=== PATIENT | male | born 1990 | race Caucasian/White ===

== ENCOUNTER → 2021-04-01 | Outpatient (CLI) | payer MEDICARE, MEDICAID, SELFPAY ==
[2018-05-10 15:43] VITALS: BMI 35.6
[2021-04-01 08:05] LABS: Mean Corp Hgb Conc 32.6 g/dL (32-36); Mean Corpuscular Hgb 29.2 pg (27.0-32.0); Mean Corpuscular Volume 89.8 fL (80-94); Mean Platelet Vol. 10.5 fl (6.2-12.0); Platelet Count 155 K/mm3 (150-450); RBC Distribution Width CV 12.5 % (11.6-14.6); RBC Distribution Width SD 41.2 fl (35.1-43.9); Red Blood Count 4.79 M/mm3 (4.6-6.2); White Blood Count 5.4 K/mm3 (4.4-11.0)
[2021-04-01 08:39] LABS: ALB/GLOB Ratio 1.2 RATIO (0.9-2.4); AST(SGOT) 12 U/L (15-37); Alanine Aminotransfer ALT/SGPT 22 U/L (16-61); Alkaline Phosphatase 82 U/L (45-117); Anion Gap 4 (5-15); BUN 10 mg/dL (7-18); BUN/Creat Ratio 10.8 RATIO (10-20); Calcium,Total 8.6 mg/dL (8.5-10.1); Chloride 106 mmol/L (98-107); Creatinine, Serum 0.92 mg/dL (0.70-1.30); EST Glomerular Filtration Rate 102 mL/min (>60); Est Glom Filt Rate - Afr Amer 124 mL/min (>60); Globulin 3.2 g/dL (2.2-4.2); Glucose 91 mg/dL (74-106); Potassium 4.1 mmol/L (3.5-5.1); Protein, Total 7.2 g/dL (6.4-8.2); Sodium Level 142 mmol/L (136-145)
[2021-04-01 08:40] LABS: Carbamazepine (Tegretol) 8.2 ug/mL (4.0-12.0)
[2021-04-01 08:50] LABS: Hemoglobin A1c 5.2 % (3.8-5.6)
== END | disposition home or self-care (01) ==
PROVIDERS: PCP Psychiatry & Neurology Child & Adolescent Psychiatry; Referring Provider Psychiatry & Neurology Child & Adolescent Psychiatry; Visit Provider Psychiatry & Neurology Child & Adolescent Psychiatry
DX: Z79.899 Other long term (current) drug therapy (principal)
CPT/HCPCS: 36415; 80053; 80156; 83036; 85027

== ENCOUNTER → 2022-03-31 | Outpatient (CLI) | payer MEDICARE, MEDICAID, SELFPAY ==
[2022-03-31 08:01] LABS: Hematocrit 44.2 % (40-54); Hemoglobin 14.7 g/dL (13.0-16.5); Mean Corp Hgb Conc 33.3 g/dL (32-36); Mean Corpuscular Hgb 29.4 pg (27.0-32.0); Mean Corpuscular Volume 88.4 fL (80-94); Mean Platelet Vol. 10.2 fl (6.2-12.0); Platelet Count 162 K/mm3 (150-450); RBC Distribution Width CV 12.4 % (11.6-14.6); RBC Distribution Width SD 40.1 fl (35.1-43.9); White Blood Count 7.1 K/mm3 (4.4-11.0)
[2022-03-31 08:18] LABS: Hemoglobin A1c 5.3 % (3.8-5.6)
[2022-03-31 08:25] LABS: ALB/GLOB Ratio 1.1 RATIO (0.9-2.4); AST(SGOT) 11 U/L (15-37); Alanine Aminotransfer ALT/SGPT 20 U/L (16-61); Albumin, Serum 3.9 g/dL (3.2-5.0); Alkaline Phosphatase 81 U/L (45-117); Anion Gap 5 (5-15); BUN 13 mg/dL (7-18); BUN/Creat Ratio 14.4 RATIO (10-20); Calcium,Total 8.8 mg/dL (8.5-10.1); Chloride 107 mmol/L (98-107); Cholesterol 151 mg/dL (200); EST Glomerular Filtration Rate 104 mL/min (>60); Est Glom Filt Rate - Afr Amer 126 mL/min (>60); Globulin 3.4 g/dL (2.2-4.2); Glucose 94 mg/dL (74-106); High Density Lipoprotein 43 mg/dL; Potassium 4.3 mmol/L (3.5-5.1); Protein, Total 7.3 g/dL (6.4-8.2); Sodium Level 142 mmol/L (136-145); Triglycerides 126 mg/dL; Very Low Density Lipoprotein 25 mg/dL (5-40)
[2022-03-31 08:36] LABS: Carbamazepine (Tegretol) 7.2 ug/mL (4.0-12.0)
== END | disposition home or self-care (01) ==
LOC: LAB 07:28
PROVIDERS: PCP Psychiatry & Neurology Child & Adolescent Psychiatry; Visit Provider Psychiatry & Neurology Child & Adolescent Psychiatry
DX: Z79.899 Other long term (current) drug therapy (principal)
CPT/HCPCS: 36415; 80053; 80061; 80156; 83036; 85027

== ENCOUNTER → 2023-03-16 | Outpatient (CLI) | payer MEDICARE, MEDICAID, SELFPAY ==
[2023-03-16 08:43] LABS: Cholesterol 186 mg/dL (200); Glucose 96 mg/dL (74-106); High Density Lipoprotein 64 mg/dL; Triglycerides 72 mg/dL; Very Low Density Lipoprotein 14 mg/dL (5-40)
== END | disposition home or self-care (01) ==
LOC: LAB 07:55
PROVIDERS: PCP Nurse Practitioner Adult Health; Referring Provider Nurse Practitioner Adult Health; Visit Provider Nurse Practitioner Adult Health
DX: Z13.6 Encounter for screening for cardiovascular disorders (principal); Z13.1 Encounter for screening for diabetes mellitus
CPT/HCPCS: 36415; 80061; 82947

== ENCOUNTER → 2024-01-12 | Outpatient (CLI) | payer MEDICARE, MEDICAID, SELFPAY ==
[2024-01-12 09:20] LABS: Hematocrit 42.4 % (40-54); Hemoglobin 13.7 g/dL (13.0-16.5); Mean Corp Hgb Conc 32.3 g/dL (32-36); Mean Corpuscular Volume 89.6 fL (80-94); Mean Platelet Vol. 10.4 fl (6.2-12.0); Platelet Count 161 K/mm3 (150-450); RBC Distribution Width SD 42.5 fl (35.1-43.9); Red Blood Count 4.73 M/mm3 (4.6-6.2); White Blood Count 6.5 K/mm3 (4.4-11.0)
[2024-01-12 09:38] LABS: Hemoglobin A1c 5.2 % (3.8-5.6)
[2024-01-12 09:50] LABS: Carbamazepine (Tegretol) 10.3 ug/mL (4.0-12.0)
[2024-01-12 10:08] LABS: ALB/GLOB Ratio 1.1 RATIO (0.9-2.4); AST(SGOT) 21 U/L (15-37); Alanine Aminotransfer ALT/SGPT 29 U/L (16-61); Albumin, Serum 3.8 g/dL (3.2-5.0); Alkaline Phosphatase 98 U/L (45-117); Anion Gap 1 (5-15); BUN 14 mg/dL (7-18); Calcium,Total 8.8 mg/dL (8.5-10.1); Chloride 110 mmol/L (98-107); Cholesterol 179 mg/dL (200); Creatinine, Serum 0.82 mg/dL (0.70-1.30); EST Glomerular Filtration Rate 114 mL/min (>60); Est Glom Filt Rate - Afr Amer 138 mL/min (>60); Globulin 3.6 g/dL (2.2-4.2); Glucose 93 mg/dL (74-106); High Density Lipoprotein 56 mg/dL; Potassium 4.1 mmol/L (3.5-5.1); Protein, Total 7.4 g/dL (6.4-8.2); Sodium Level 141 mmol/L (136-145); Thyroid Stim Hormone (TSH) 2.36 uIU/mL (0.358-3.74); Triglycerides 86 mg/dL; Very Low Density Lipoprotein 17 mg/dL (5-40)
== END | disposition home or self-care (01) ==
LOC: LAB 07:50
PROVIDERS: PCP Nurse Practitioner Adult Health; Referring Provider Psychiatry & Neurology Child & Adolescent Psychiatry; Visit Provider Psychiatry & Neurology Child & Adolescent Psychiatry
DX: Z79.899 Other long term (current) drug therapy (principal)
CPT/HCPCS: 36415; 80053; 80061; 80156; 83036; 84443; 85027

== ENCOUNTER 2024-06-22 17:28 | Emergency (ER) | payer MEDICARE, MEDICAID, SELFPAY ==
[2024-06-22 17:29] VITALS: BP 163/78; PULSE 75; RESP 18; TEMP 36.1; O2SAT 95; BMI 40.8
--- NOTE | 2024-06-22 18:50 | EDS_ITS ---
<Statement entered by Senthil Bear DO - 06/22/24 21:12> Patient was seen and examined with nurse abundio De La Vega All components of the history and physical confirmed and agreed. History of present illness and physical exam: Patient is a 34-year-old male with known history of bipolar disorder who presents to the emergency department with a chief complaint of being bit in the buttock region by a spider. He states that he was sitting down when he felt a sharp pinch to the right buttock and noted that when he stood up he saw the spider he states that he then killed it. He states that he did some research and was concerned that this was a brown recluse spider prompting him to come here for the evaluation management. Patient states he does have some moderate pain but he knows that the spider can cause infection which was ultimately what brought him here tonight. Review of systems: Agree with above Physical exam: Agree with above MDM Patient is a 34-year-old male who presented to the [facility] part with a chief complaint of concern being bit by a brown recluse spider. When looking at the spider here in the emergency department this does not appear to be a brown recluse spider. Patient's wound where he was bit has some mild erythema surrounding it however no purulent discharge noted no fluctuance noted. Patient is nontoxic in appearance. Patient will be given a prescription for doxycycline. He is encouraged to keep a close eye in the area and return with worsening symptoms or any concerns. He is to follow-up with his primary care physician outpatient setting. Him and his father would like to go home at this point time all question concerns answered he is discharged home in stable condition. Final impression: Spider bite to buttock Disposition: Patient will be discharged home in stable condition Supervising attending attestation: Senthil Bear D.O. [facility] History of Present Illness Chief Complaint: Bite Narrative Narrative: Patient is a 34-year-old male with history of bipolar who presents to the emergency department after being bit by a spider to the right upper buttock. Patient was sitting down, when he felt a sharp pinch in his right buttock, he got up, and saw that there was a spider, he then killed it. He is concerned that is a brown recluse spider. Patient denies any other injury. Patient dates the pain is moderate, he was concerned because he knows that the spider can cause infection and is here for evaluation. [facility] Medical History (Updated 06/22/24 @ 18:55 by CHAVA Slater) Depression ADHD Bipolar 1 disorder Home Medications ?Medication ?Instructions ?Recorded ?Last Taken ?Type carbamazepine 200 mg PO 25 days ##125 04/01/18 Unknown History capsule,extended release [id number] dextroamphetamine-amphetamine 10 PO 30 days ##30 04/01/18 Unknown History mg tablet lisdexamfetamine 50 mg capsule PO 30 days ##30 04/01/18 Unknown History risperidone 2 mg tablet PO 25 days ##50 04/01/18 Unknown History sertraline 100 mg tablet PO 25 days ##38 04/01/18 Unknown History doxycycline hyclate 100 mg capsule 100 mg PO BID #14 caps 06/22/24 Unknown Rx Allergy/AdvReac Type Severity Reaction Status Date / Time bee venom protein (honey bee) Allergy Unknown Verified 06/22/24 17:32 Surgical History Injury of face Social History (Updated 05/10/18 @ 16:10 by Suhail BRYANT, PA) Smoking Status: Never smoker alcohol intake: never ROS ROS ED ROS Narrative Constitutional: Negative for fever, chills, weight loss, weakness Eyes: Negative for vision loss, vision change, double vision ENT: Negative for any sore throat, ear pain, congestion Cardiovascular: Negative for any chest pain, tightness, palpitations Respiratory: Negative for any cough, sputum production, hemoptysis, dyspnea, dyspnea on exertion, orthopnea Gastrointestinal: Negative for any abdominal pain, nausea, vomiting, diarrhea, constipation, blood in stool, blood in vomit : Negative for any urinary frequency, dysuria, retention, blood in urine Muscle skeletal: Negative for any neck pain, back pain Neurological: Negative for any headache, syncope, dizziness Skin: Negative for any rashes, itching, abrasions, lacerations. Positive for spider bite to the right upper buttock Psychiatric: Negative for any depression, anxiety, stress, suicidal ideation, homicidal ideation Hematologic: Negative for any excessive bruising, easy bleeding EXAM Physical Exam Narrative Exam Narrative: Vital signs reviewed. Extremities: No peripheral edema, no signs of gross trauma or deformity. Active full range of motion of all extremities. Neuro: Cranial nerves II through XII intact, no focal neurological deficits. Skin: Clean dry and intact with no rash, purpura, petechiae, vesicles or pustules. Patient has a small oval like inflammatory area to the right upper buttock. This is likely where the insect bit the patient. There is no evidence of any significant cellulitis, there is no deep tissue infection. Patient has minimal pain. Backs/flank: No CVA tenderness, no midline spinal tenderness, no deformity. Psych: Normal mood and affect. No SI, HI or acute psychosis. Const Vital Signs: 06/22/24 17:29 Temperature 97 F L Temperature Source Oral Pulse Rate 75 Respiratory Rate 18 Blood Pressure 163/78 H Blood Pressure Mean 106 Pulse Ox 95 Oxygen Delivery Method Room Air Positive obese Nutritional Appearance: obese MDM MDM Treatment and Re-Evaluation :: Differential diagnosis includes however is not limited to: Insect bite, cellulitis, necrotizing fasciitis, nerve injury Patient appears generally well, vital signs are stable, patient is nontoxic-appearing. Presenting to the emergency department after being bit by a spider to his right upper buttock. Secondary to the inflammatory area on the skin, patient will be treated with doxycycline twice a day for 1 week. He is instructed to use cold compress, and to keep a close eye on this area. If the redness gets worse, if the pain becomes unmanageable, the patient will return back to the emergency department. All questions answered, patient stable for discharge. Discharge Plan Triage Chief Complaint: Bite ED Midlevel Provider: Ceferino Diallo ED Provider: Senthil Bear Dx/Rx/DC Orders Clinical Impression: Insect bite Instructions: Animal Bites and Scratches, ED Insect Bite Prescriptions: New doxycycline hyclate 100 mg capsule 100 mg PO BID Qty: 14 0RF No Action dextroamphetamine-amphetamine 10 mg tablet PO 30 Days Qty: 30 Patient Comments: TAKE ONE TABLET BY MOUTH EVERY DAY AT 3 PM sertraline 100 mg tablet PO 25 Days Qty: 38 Patient Comments: TAKE 1 AND 1/2 TABLETS BY MOUTH IN THE MORNING risperidone 2 mg tablet PO 25 Days Qty: 50 Patient Comments: TAKE ONE TABLET BY MOUTH TWICE DAILY carbamazepine 200 mg capsule, ER multiphase 12 hr PO 25 Days Qty: 125 Patient Comments: TAKE TWO CAPSULES BY MOUTH IN THE MORNING, AND THREE capsules AT BEDTIME lisdexamfetamine 50 mg capsule PO 30 Days Qty: 30 Patient Comments: TAKE ONE CAPSULE BY MOUTH EVERY MORNING Primary Care Provider: KRYSTIAN TAI Referrals: KRYSTIAN TAI CRNP [Primary Care Provider] - Activity Restrictions/Additional Instructions: Please take the antibiotics until finished. Return for any worsening symptoms. Print Language: Slovenian Disposition Disposition: Home, Self Care
[2024-06-22] MEDS: Doxycycline 100 MG CAPSULE PO (19:13)
[2024-06-22 19:24] VITALS: BP 145/82; PULSE 75; RESP 18; TEMP 36.1; O2SAT 95
== END 2024-06-22 19:25 | disposition home or self-care (01) ==
LOC: ED 19:11
PROVIDERS: Emergency Provider Emergency Medicine; PCP Nurse Practitioner Adult Health; Referring Provider Emergency Medicine; Visit Provider Emergency Medicine
DX: S30.860A Insect bite (nonvenomous) of lower back and pelvis, initial encounter (principal); W57.XXXA Bitten or stung by nonvenomous insect and other nonvenomous arthropods, initial encounter; E66.9 Obesity, unspecified
CPT/HCPCS: 99283

== ENCOUNTER → 2025-01-29 | Outpatient (CLI) | payer MEDICARE, MEDICAID, SELFPAY ==
[2025-01-29 09:42] LABS: Cholesterol 179 mg/dL (<=200); Glucose 97 mg/dL (70-99); High Density Lipoprotein 55 mg/dL; Low Density Lipoprotein Calc. 103 mg/dL; Triglycerides 102 mg/dL; Very Low Density Lipoprotein 20 mg/dL (5-40); cholesterol:hdl ratio screen 3.24
== END | disposition home or self-care (01) ==
LOC: LAB 07:52
PROVIDERS: PCP Nurse Practitioner Adult Health; Referring Provider Nurse Practitioner Adult Health; Visit Provider Nurse Practitioner Adult Health
DX: Z13.6 Encounter for screening for cardiovascular disorders (principal); Z13.1 Encounter for screening for diabetes mellitus
CPT/HCPCS: 36415; 80061; 82947

== ENCOUNTER → 2025-05-04 | Outpatient (CLI) | payer MEDICARE, MEDICAID, SELFPAY ==
--- OUTSIDE RECORDS SUMMARY | 2025-05-04 07:53 | XMS RPT_ITS | CCD ---
Author Organization [facility] Care Team Providers Care Office Clinician Name Role Phone MAST DETECTIVE SUPERVISOR KRYSTIAN Primary Care Provider [phone] MAST DETECTIVE SUPERVISOR, KRYSTIAN Attending Provider [phone] MAST DETECTIVE SUPERVISOR, KRYSTIAN Referring Provider [phone] MAST, KRYSTIAN Referring Unavailable MAST, KRYSTIAN Attending Unavailable MAST, KRYSTIAN Primary Care Unavailable Senthil Bear Attending Unavailable MAST, KRYSTIAN Primary Care Unavailable Senthil Bear Referring Unavailable Allergies Allergy Classification Reported Allergen(s) Allergy Type Date of Onset Reaction(s) Facility (3 sources) bee venom protein (honey bee) Allergy to substance 05-10-[address] [facility] (1 source) bee venom protein (honey bee) Drug allergy (disorder) 06-22-2024 [facility] Repository Medications Current Medications Medication Drug Class(es) Dates Sig (Normalized) Sig (Original) amphetamine aspartate 2.5 mg / amphetamine sulfate 2.5 mg / dextroamphetamine saccharate 2.5 mg / dextroamphetamine sulfate 2.5 mg oral tablet (3 sources) Central Nervous System Stimulant Start: 04-01-2018 Dextroamphetamin e-Amphetamine 10 mg tablet Active PO 30 April 01, 2018 12:00am Start: 04-01-2018 Dextroamphetam ine-Amphetamine Active PO 30 April 01, 2018 12:00am 12 hr carBAMazepine 200 mg extended release oral capsule (3 sources) Mood Stabilizer Start: 04-01-2018 Carbamazepine 200 mg capsule, ER multiphase 12 hr Active PO 125 April 01, 2018 12:00am Start: 04-01-2018 Carbamazepine Active PO 125 April 01, 2018 12:00am doxycycline hyclate 100 mg oral capsule (1 source) Tetracycline-class Drug Start: 06-22-2024 take 1 capsule by mouth twice daily Doxycycline Hyclate 100 mg capsule Active 100 mg PO TWICE A DAY 14 October 3rd, 2024 12:00am lisdexamfetamine dimesylate 50 mg oral capsule (3 sources) Central Nervous System Stimulant Start: 04-01-2018 Lisdexamfetamine 50 mg capsule Active PO 30 April 01, 2018 12:00am Start: 04-01-2018 Lisdexamfetami ne Active PO 30 April 01, 2018 12:00am risperiDONE 2 mg oral tablet (3 sources) Atypical Antipsychotic Start: 04-01-2018 Risperi done 2 mg tablet Active PO 50 April 01, 2018 12:00am Start: 04-01-2018 Risperidone Ac tive PO 50 April 01, 2018 12:00am sertraline 100 mg oral tablet (3 sources) Serotonin Reuptake Inhibitor Start: 04-01-2018 Sertraline 100 mg tablet Active PO 38 April 01, 2018 12:00am Start: 04-01-2018 Sertraline Act abbey PO 38 April 01, 2018 12:00am Problems Active Problems Problem Classification Problem Date Documented Date Episodic/Chronic E Codes: Natural/environment (1 source) Bitten or stung by nonvenomous insect and other nonvenomous arthropods, initial encounter; Translations: [Insect bite] 06-30-2024 Episodic Open wounds of extremities (6 sources) Laceration of left thumb; Translations: [Laceration without foreign body of left thumb without damage to nail, initial encounter] 04-14-2018 Episodic Other screening for suspected conditions (not mental disorders or infectious disease) (1 source) Encounter for screening for cardiovascular disorders; Translations: [Encounter for screening for cardiovascular disorders] Onset: 02-02-2025 Episodic Past or Other Problems Problem Classification Problem Date Documented Da te Episodic/Chronic Superficial injury; contusion (4 sources) Contusion of left thumb; Translations: [Contusion of left thumb without damage to nail, initial encounter] Onset: 07-18-2024 04-01-2018 Episodic Results Test Name Value Interpretation Reference Range Facility Calculated very low density lipoprotein (VLDL) cholesterol measurementOrdered By: KRYSTIAN TAI on 01-29-2025 Calculated very low density lipoprotein (VLDL) cholesterol measurement 20 mg/dL 5-40 [facility] Glucoseon 01-29-2025 Glucose [Mass/Vol] 97 mg/dL Normal 70-99 [facility] Comment on above: Performed By: #### L 500.4100, L501.0100 #### [facility] [address] [place], [address] LDL calc ser/plasOrdered By: KRYSTIAN TAI on 01-29-2025 Cholesterol in LDL [Mass/Vol] 103 mg/dL [facility] Comment on above: Hbmwhgnpbf=492-773 m g/dL & Higher Ktsr=517 mg/dL or greater Lipid Profileon 01-29-2025 CHOL:HDL 3.[address] [facility] Comment on above: Performed By: #### L 500.4100, L501.0100 #### [facility] [address] [place], [address] Cholesterol [Mass/Vol] 179 mg/dL Normal <=200 [facility] Comment on above: Result Comment: Chol esterol level, Desirable <200 mg/dL Borderline high cholesterol 200-239 mg/dL High cholesterol >=240 mg/dL Recommendations of the NCEP Adult Treatment Panel for the following risk-cutoff thresholds for the [place] population. Performed By: #### L 500.4100, L501.0100 #### [facility] [address] [place], [address] Cholesterol in HDL [Mass/Vol] 55 mg/dL Normal [facility] Comment on above: Result Comment: Ce onal Cholesterol Education Program (NCEP) guidelines: <40 mg/dL: Low HDL-cholesterol (major risk factor for CHD) >= 60 mg/dL: High HDL-cholesterol (negative risk factor for CHD) HDL-cholesterol is affected by a number of factors, e.g. smoking, exercise, hormones, sex and age. Performed By: #### L 500.4100, L501.0100 #### [facility] [address] [place], [address] Cholesterol in LDL [Mass/Vol] 103 mg/dL Normal [facility] Comment on above: Result Comment: Bord oehmng=241-359 mg/dL Higher Ckwf=673 mg/dL or greater Performed By: #### L 500.4100, L501.0100 #### [facility] [address] [place], [address] Cholesterol in VLDL [Mass/Vol] 20 mg/dL Normal 5-40 [facility] Comment on above: Performed By: #### L 500.4100, L501.0100 #### [facility] [address] [place], [address] Triglyceride [Mass/Vol] 102 mg/dL Normal [facility] Comment on above: Result Comment: The drugs N-Acetylcysteine and Metamizole may falsely depress this assay. Normal range: <150 mg/dL Borderline High: 150-199 mg/dL High: 200-499 mg/dL Very High: >500 mg/dL Performed By: #### L 500.4100, L501.0100 #### [facility] [address] [place], [address] Screening total cholesterol/ high density lipoprotein (HDL) cholesterol ratioOrdered By: Accountable on 01-29-2025 Cholesterol.total/Unique sterol in HDL [Mass ratio] 3.24 {ratio} [facility] Serum glucose measurement (m ass/volume)Ordered By: Accountable on 01-29-2025 Glucose [Mass/Vol] 97 mg/dL 70-99 [facility] Serum or plasma cholesterol in HDL measurement (mass/volume)Ordered By: Accountable on 01-29-2025 Cholesterol in HDL [Mass/Vol] 55 mg/dL >40 [facility] Comment on above: National Cholesterol Education Program (NCEP) guidelines:<40 mg/dL: Low HDL-cholesterol (major risk factor for CHD)>= 60 mg/dL: High HDL-cholesterol (negative risk factor for CHD)HDL-cholesterol is affected by a number of factors, e.g. smoking, exercise, hormones, sex and age. Serum or plasma cholesterol measurement (mass/volume)Ordered By: Accountable on 01-29-2025 Cholesterol [Mass/Vol] 179 mg/dL <201 [facility] Comment on above: Cholesterol level, D esirable <200 mg/dLBorderline high cholesterol 200-239 mg/dLHigh cholesterol >=240 mg/dLRecommendations of the NCEP Adult Treatment Panel for the following risk-cutoff thresholds for the [place] population. Triglycerides measurementOrd ered By: KRYSTIAN TAI on 01-29-2025 Triglyceride [Mass/Vol] 102 mg/dL <199 [facility] Comment on above: The drugs N-Acetylcy steine and Metamizole may falsely depress this assay. Normal range: <150 mg/dLBorderline High: 150-199 mg/dLHigh: 200-499 mg/dLVery High: >500 mg/dL Emergency Department Summary on 06-22-2024 Emergency Department Summary [facility] Medical Records Department [address] [place] [address] Emergency Department Summary 06/22/24 MR#: [id number] Acct: [id number] Name: MARCIA STALLWORTH Rep #: [id number] : 1990 34 From: Senthil Bear DO PCP: ITALIA ESPINO Status:DEP ER Location: ED Patient was seen and examined with nurse practitioner Ceferino All components of the history and physical confirmed and agreed. History of present illness and physical exam: Patient is a 34-year-old male with known history of bipolar disorder who presents to the emergency department with a chief complaint of being bit in the buttock region by a spider. He states that he was sitting down when he felt a sharp pinch to the right buttock and noted that when he stood up he saw the spider he states that he then killed it. He states that he did some research and was concerned that this was a brown recluse spider prompting him to come here for the evaluation management. Patient states he does have some moderate pain but he knows that the spider can cause infection which was ultimately what brought him here tonight. Review of systems: Agree with above Physical exam: Agree with above MDM Patient is a 34-year-old male who presented to the emerged part with a chief complaint of concern being bit by a brown recluse spider. When looking at the spider here in the emergency department this does not appear to be a brown recluse spider. Patient's wound where he was bit has some mild erythema surrounding it however no purulent discharge noted no fluctuance noted. Patient is nontoxic in appearance. Patient will be given a prescription for doxycycline. He is encouraged to keep a close eye in the area and return with worsening symptoms or any concerns. He is to follow-up with his primary care physician outpatient setting. Him and his father would like to go home at this point time all question concerns answered he is discharged home in stable condition. Final impression: Spider bite to buttock Disposition: Patient will be discharged home in stable condition Supervising attending attestation: Senthil RIOS History of Present Illness Chief Complaint: Bite Narrative Narrative: Patient is a 34-year-old male with history of bipolar who presents to the emergency department after being bit by a spider to the right upper buttock. Patient was sitting down, when he felt a sharp pinch in his right buttock, he got up, and saw that there was a spider, he then killed it. He is concerned that is a brown recluse spider. Patient denies any other injury. Patient dates the pain is moderate, he was concerned because he knows that the spider can cause infection and is here for evaluation. [facility] Medical History (Updated 06/22/24 @ 18:55 by CHAVA Slater) Depression ADHD Bipolar 1 disorder Home Medications ???Medication ???Instructions ???Recorded ???Last Taken ???Type carbamazepine 200 mg PO 25 days ##125 04/01/18 Unknown History capsule,extended release [id number] dextroamphetamine- amphetamine 10 PO 30 days ##30 04/01/18 Unknown History mg tablet lisdexamfetamine 50 mg capsule PO 30 days ##30 04/01/18 Unknown History risperidone 2 mg tablet PO 25 days ##50 04/01/18 Unknown History sertraline 100 mg tablet PO 25 days ##38 04/01/18 Unknown History doxycycline hyclate 100 mg capsule 100 mg PO BID #14 caps 06/22/24 Unknown Rx Allergy/AdvReac Type Severity Reaction Status Date / Time bee venom protein (honey bee) Allergy Unknown Verified 06/22/24 17:32 Surgical History Injury of face Social History (Updated 05/10/18 @ 16:10 by Suhail BRYANT, PA) Smoking Status: Never smoker alcohol intake: never ROS ROS ED ROS Narrative Constitutional: Negative for fever, chills, weight loss, weakness Eyes: Negative for vision loss, vision change, double vision ENT: Negative for any sore throat, ear pain, congestion Cardiovascular: Negative for any chest pain, tightness, palpitations Respiratory: Negative for any cough, sputum production, hemoptysis, dyspnea, dyspnea on exertion, orthopnea Gastrointestinal: Negative for any abdominal pain, nausea, vomiting, diarrhea, constipation, blood in stool, blood in vomit : Negative for any urinary frequency, dysuria, retention, blood in urine Muscle skeletal: Negative for any neck pain, back pain Neurological: Negative for any headache, syncope, dizziness Skin: Negative for any rashes, itching, abrasions, lacerations. Positive for spider bite to the right upper buttock Psychiatric: Negative for any depression, anxiety, stress, suicidal ideation, homicidal ideation Hematologic: Negative for any excessive bruising, easy bleeding EXAM Physical Exam Narrative Exam Narrative: Vital signs (more content not included)... Normal [facility] Basophil percentageOrdered B y: Jolynn Saucedoagustina on 01-12-2024 Bilirubin [Mass/Vol] 0.30 mg/dL 0.20-1.00 [facility] Comment on above: For patients on eltr ombopag therapy, use of Dimension [place] TBIL is not recommended. Chloride [Moles/Vol] 110 mmol/L 98-107 [facility] Cholesterol [Mass/Vol] 179 mg/dL <200 [facility] Comment on above: <200 mg/dL Desirable 200-240 mg/dL Borderline >240 mg/dL High Risk Glucose [Mass/Vol] 93 mg/dL 74-106 [facility] Hemoglobin (Bld) [Mass/Vol] 13.7 g/dL 13.0-16.5 [facility] Potassium [Moles/Vol] 4.1 mmol/L 3.5-5.1 [facility] Protein [Mass/Vol] 7.4 g/dL 6.4-8.2 [facility] Sodium [Moles/Vol] 141 mmol/L 136-145 [facility] Triglyceride [Mass/Vol] 86 mg/dL <199 [facility] Comment on above: The drugs N-Acetylcy steine and Metamizole may falsely depress this assay.Serum Triglycerides Reference Interval Normal <150 mg/dL Borderline high 150 - 199 mg/dL High 200 - 499 mg/dL Very High > or = 500 mg/dL WBC (Bld) [#/Vol] 6.5 10*3/uL 4.4-11.0 [facility] Determination of erythrocyte mean corpuscular volume (MCV)Ordered By: [facility] 01-12-2024 MCV (RBC) [Entitic vol] 89.6 fL 80-94 [facility] Erythrocyte distribution wid th ratioOrdered By: [facility] on 01-12-2024 Erythrocyte distribution width (RBC) [Ratio] 13.0 % 11.6-14.6 [facility] Erythrocyte distribution wid th standard deviationOrdered By: [facility] on 01-12-2024 Erythrocyte distribution width (RBC) [Entitic vol] 42.5 fL 35.1-43.9 [facility] Hematocrit Auto (Bld) [Volum e fraction]Ordered By: [facility] on 01-12-2024 Hematocrit (Bld) [Volume fraction] 42.4 % 40-54 [facility] Laboratory - Chemistry and C hemistry - challengeOrdered By: [facility] on 01-12-2024 Albumin/Globulin [Mass ratio] 1.1 {ratio} 0.9-2.4 [facility] ALP [Catalytic activity/Vol] 98 U/L 45-117 [facility] ALT [Catalytic activity/Vol] 29 U/L 16-61 [facility] Cholesterol in HDL [Mass/Vol] 56 mg/dL >40 [facility] Comment on above: The drugs N-Acetylcy steine and Metamizole may falsely depress this assay. Reference Range HDL <40 mg/dL Low HDL Cholesterol HDL >or= 60 mg/dL High HDL Cholesterol Cholesterol in LDL [Mass/Vol] 106 mg/dL 0-130 [facility] CO2 [Moles/Vol] 30.0 mmol/L 21.0-32.0 [facility] Globulin (S) [Mass/Vol] 3.6 g/dL 2.2-4.2 [facility] Urea nitrogen/Creatinine [Mass ratio] 17.0 mg/mg 10-20 [facility] Laboratory - Hematology and Cell countsOrdered By: [facility] on 01-12-2024 MCH (RBC) [Entitic mass] 29.0 pg 27.0-32.0 [facility] MCHC (RBC) [Mass/Vol] 32.3 g/dL 32-36 [facility] Platelet mean volume (Bld) [Entitic vol] 10.4 fL 6.2-12.0 [facility] Platelets (Bld) [#/Vol] 161 10*3/uL 150-450 [facility] No Panel InformationOrdered By: Jolynn Cardoso on 01-12-2024 Carbamazepine (Tegretol) Level 10.3 ug/mL 4.0-12.0 [facility] Estimated GFR (MDRD) Amer 138 mL/min >60 [facility] Comment on above: GFR Calc Estimated GFR (MDRD) Non-Af Amer 114 mL/min >60 [facility] Comment on above: Non- GFR Calc VLDL Cholesterol 17 mg/dL 5-40 [facility] RBC Auto (Bld) [#/Vol]Ordere d By: Jolynn Cardoso on 01-12-2024 RBC (Bld) [#/Vol] 4.73 10*6/uL 4.6-6.2 [facility] Serum or plasma calcium raymon urement (mass/volume)Ordered By: Jolynn Cardoso on 01-12-2024 Calcium [Mass/Vol] 8.8 mg/dL 8.5-10.1 [facility] Serum or plasma creatinine m easurement (mass/volume)Ordered By: Jolynn Cardoso on 01-12-2024 Creatinine [Mass/Vol] 0.82 mg/dL 0.70-1.30 [facility] Comment on above: The validity of the calculated GFR & GFRAA in patients over 70 years has not been determined. Clinical correlation is essential. Serum or plasma thyroid stim ulating hormone (TSH) measurement (units/volume)Ordered By: Jolynn Cardoso on 01-12-2024 TSH Qn 2.36 uIU/mL 0.358-3.74 [facility] Serum or plasma urea nitroge n measurement (mass/volume)Ordered By: Jolynn Cardoso on 01-12-2024 Urea nitrogen [Mass/Vol] 14 mg/dL 7-18 [facility] Thin prep Papanicolaou smear with manual screeningOrdered By: Jolynn Cardoso on 01-12-2024 Thin prep Papanicolaou smear with manual screening 3.8 g/dL 3.2-5.0 [facility] Thin prep Papanicolaou smear with manual screening 21 U/L 15-37 [facility] Thin prep Papanicolaou smear with manual screening 1 5-15 [facility] Whole blood hemoglobin A1c/t otal hemoglobin ratio (mass fraction)Ordered By: Jolynn Cardoso on 01-12-2024 HbA1c (Bld) [Mass fraction] 5.2 % 3.8-5.6 [facility] Comment on above: Normal < 5.7 % Predi abetic 5.7 - 6.4 % Diabetic >or= 6.5 % Please note range changes. Basophil percentageon 2021 Bilirubin [Mass/Vol] 0.20 mg/dL 0.20-1.00 [facility] Work Phone: Comment on above: For patients on eltr ombopag therapy, use of Dimension [place] TBIL is not recommended. Chloride [Moles/Vol] 107 mmol/L 98-107 [facility] Work Phone: Cholesterol [Mass/Vol] 151 mg/dL <200 [facility] Work Phone: Comment on above: <200 mg/dL Desirable 200-240 mg/dL Borderline >240 mg/dL High Risk Glucose [Mass/Vol] 94 mg/dL 74-106 [facility] Work Phone: Potassium [Moles/Vol] 4.3 mmol/L 3.5-5.1 [facility] Work Phone: Protein [Mass/Vol] 7.3 g/dL 6.4-8.2 [facility] Work Phone: Sodium [Moles/Vol] 142 mmol/L 136-145 [facility] Work Phone: Triglyceride [Mass/Vol] 126 mg/dL <199 [facility] Work Phone: Comment on above: The drugs N-Acetylcy steine and Metamizole may falsely depress this assay.Serum Triglycerides Reference Interval Normal <150 mg/dL Borderline high 150 - 199 mg/dL High 200 - 499 mg/dL Very High > or = 500 mg/dL WBC (Bld) [#/Vol] 7.1 10*3/uL 4.4-11.0 [facility] Work Phone: Blood erythrocytes count (nu mber/volume)on 03-31-2022 RBC (Bld) [#/Vol] 5.00 10*6/uL 4.6-6.2 [facility] Work Phone: Blood hemoglobin measurement (mass/volume)on 03-31-2022 Hemoglobin (Bld) [Mass/Vol] 14.7 g/dL 13.0-16.5 [facility] Work Phone: Blood platelet mean volumeon 03-31-2022 Platelet mean volume (Bld) [Entitic vol] 10.2 fL 6.2-12.0 [facility] Work Phone: Determination of erythrocyte mean corpuscular volume (MCV)on 03-31-2022 MCV (RBC) [Entitic vol] 88.4 fL 80-94 [facility] Work Phone: Hematocrit Auto (Bld) [Volum e fraction]on 03-31-2022 Hematocrit (Bld) [Volume fraction] 44.2 % 40-54 [facility] Work Phone: Laboratory - Chemistry and C hemistry - challengeon 03-31-2022 ALP [Catalytic activity/Vol] 81 U/L 45-117 [facility] Work Phone: ALT [Catalytic activity/Vol] 20 U/L 16-61 [facility] Work Phone: CO2 [Moles/Vol] 30.0 mmol/L 21.0-32.0 [facility] Work Phone: Globulin (S) [Mass/Vol] 3.4 g/dL 2.2-4.2 [facility] Work Phone: Urea nitrogen/Creatinine [Mass ratio] 14.4 mg/mg 10-20 [facility] Work Phone: Laboratory - Hematology and Cell countson 03-31-2022 Erythrocyte distribution width (RBC) [Entitic vol] 40.1 fL 35.1-43.9 [facility] Work Phone: Erythrocyte distribution width (RBC) [Ratio] 12.4 % 11.6-14.6 [facility] Work Phone: MCH (RBC) [Entitic mass] 29.4 pg 27.0-32.0 [facility] Work Phone: MCHC Auto (RBC) [Mass/Vol]on 03-31-2022 MCHC (RBC) [Mass/Vol] 33.3 g/dL 32-36 [facility] Work Phone: No Panel Informationon 03-31 Carbamazepine (Tegretol) Level 7.2 ug/mL 4.0-12.0 [facility] Work Phone: Estimated GFR (MDRD) Amer 126 mL/min >60 [facility] Work Phone: Comment on above: GFR Calc Estimated GFR (MDRD) Non-Af Amer 104 mL/min >60 [facility] Work Phone: Comment on above: Non- GFR Calc Platelets bldon 03-31-2022 Platelets (Bld) [#/Vol] 162 10*3/uL 150-450 [facility] Work Phone: Serum or plasma albumin raymon urement (mass/volume)on 03-31-2022 Albumin [Mass/Vol] 3.9 g/dL 3.2-5.0 [facility] Work Phone: Serum or plasma albumin/glob ulin mass ratioon 03-31-2022 Albumin/Globulin [Mass ratio] 1.1 {ratio} 0.9-2.4 [facility] Work Phone: Serum or plasma calcium raymon urement (mass/volume)on 03-31-2022 Calcium [Mass/Vol] 8.8 mg/dL 8.5-10.1 [facility] Work Phone: Serum or plasma cholesterol in HDL measurement (mass/volume)on 03-31-2022 Cholesterol in HDL [Mass/Vol] 43 mg/dL >40 [facility] Work Phone: Comment on above: The drugs N-Acetylcy steine and Metamizole may falsely depress this assay. Reference Range HDL <40 mg/dL Low HDL Cholesterol HDL >or= 60 mg/dL High HDL Cholesterol Serum or plasma cholesterol in VLDL measurement (mass/volume)on 03-31-2022 Cholesterol in VLDL [Mass/Vol] 25 mg/dL 5-40 [facility] Work Phone: Serum or plasma creatinine m easurement (mass/volume)on 03-31-2022 Creatinine [Mass/Vol] 0.90 mg/dL 0.70-1.30 [facility] Work Phone: Comment on above: The validity of the calculated GFR & GFRAA in patients over 70 years has not been determined. Clinical correlation is essential. Serum or plasma low density lipoprotein (LDL) cholesterol measurement (mass/volume)on 03-31-2022 Cholesterol in LDL [Mass/Vol] 83 mg/dL 0-130 [facility] Work Phone: Serum or plasma urea nitroge n measurement (mass/volume)on 03-31-2022 Urea nitrogen [Mass/Vol] 13 mg/dL 7-18 [facility] Work Phone: Thin prep Papanicolaou smear with manual screeningon 03-31-2022 Thin prep Papanicolaou smear with manual screening 11 U/L 15-37 [facility] Work Phone: Thin prep Papanicolaou smear with manual screening 5 5-15 [facility] Work Phone: Whole blood hemoglobin A1c/t otal hemoglobin ratio (mass fraction)on 03-31-2022 HbA1c (Bld) [Mass fraction] 5.3 % 3.8-5.6 [facility] Work Phone: Comment on above: Normal < 5.7 % Predi abetic 5.7 - 6.4 % Diabetic >or= 6.5 % Please note range changes. .Auto Diffon 11-16-2020 Ammonia (P) [Mass/Vol] 0.40 10 3/mcL Normal 0.15-1.00 [facility] ([place]) Comment on above: Performed By: #### C MP, ANEU, ADIFF, A1C, LIPID, CBC #### [place] [address] #### GFR, CARB #### [address] [address] Basophils (Bld) [#/Vol] 0.00 10 3/mcL Normal 0.00-0.19 [facility] ([place]) Comment on above: Performed By: #### C MP, ANEU, ADIFF, A1C, LIPID, CBC #### [place] [address] #### GFR, CARB #### [address] [address] Basophils/100 WBC (Bld) 0.4 % Normal 0.0-2.5 A [facility] ([place]) Comment on above: Performed By: #### C MP, ANEU, ADIFF, A1C, LIPID, CBC #### [place] [id number] #### GFR, CARB #### [address] [address] Eosinophils (Bld) [#/Vol] 0.10 10 3/mcL Normal 0.00-0.40 [facility] ([place]) Comment on above: Performed By: #### C MP, ANEU, ADIFF, A1C, LIPID, CBC #### [place] [address] #### GFR, CARB #### [address] [address] Eosinophils/100 WBC (Bld) 1.9 % Normal 0.0-7.0 [facility] ([place]) Comment on above: Performed By: #### C MP, ANEU, ADIFF, A1C, LIPID, CBC #### [address] [address] #### GFR, CARB #### [address] [address] Lymphocytes (Bld) [#/Vol] 1.00 10 3/mcL Normal 0.77-3.85 [facility] ([place]) Comment on above: Performed By: #### C MP, ANEU, ADIFF, A1C, LIPID, CBC #### [place] [address] #### GFR, CARB #### [address] [address] Lymphocytes/100 WBC (Bld) 19.4 % Normal 10.0-50.0 [facility] ([place]) Comment on above: Performed By: #### C MP, ANEU, ADIFF, A1C, LIPID, CBC #### [place] [address] #### GFR, CARB #### [address] [address] Monocytes/100 WBC (Bld) 7.7 % Normal 1.7-13.0 A [facility] ([place]) Comment on above: Performed By: #### C MP, ANEU, ADIFF, A1C, LIPID, CBC #### [address] [address] #### GFR, CARB #### [address] [address] Neutrophils/100 WBC (Bld) 70.6 % Normal 37.0-80.0 [facility] ([place]) Comment on above: Performed By: #### C MP, ANEU, ADIFF, A1C, LIPID, CBC #### [address] [address] #### GFR, CARB #### [address] [address] .GFRon 11-16-2020 GFR Non- 105 ml/min/1.73sqm Normal [facility] ([place]) Comment on above: Result Comment: GFR Population mean for , Non- Americans Ages 20-29 = 116 mL/min/1.73 sq.m. Ages 30-39 = 107 mL/min/1.73 sq.m. Ages 40-49 = 99 mL/min/1.73 sq.m. Ages 50-59 = 93 mL/min/1.73 sq.m. Ages 60-69 = 85 mL/min/1.73 sq.m. Ages 70+ = 75 mL/min/1.73 sq.m. Chronic Kidney Disease: Less than 60 mL/min/1.73 square meters End Stage Renal Disease: Less than 15 mL/min/1.73 square meters Performed By: #### C MP, ANEU, ADIFF, A1C, LIPID, CBC #### [address] [address] #### GFR, CARB #### [address] [address] GFR 127 ml/min/1.73sqm Normal [facility] ([place]) Comment on above: Result Comment: GFR Population mean for , Non- Americans Ages 20-29 = 116 mL/min/1.73 sq.m. Ages 30-39 = 107 mL/min/1.73 sq.m. Ages 40-49 = 99 mL/min/1.73 sq.m. Ages 50-59 = 93 mL/min/1.73 sq.m. Ages 60-69 = 85 mL/min/1.73 sq.m. Ages 70+ = 75 mL/min/1.73 sq.m. Chronic Kidney Disease: Less than 60 mL/min/1.73 square meters End Stage Renal Disease: Less than 15 mL/min/1.73 square meters Performed By: #### C MP, ANEU, ADIFF, A1C, LIPID, CBC #### [address] [address] #### GFR, CARB #### [address] [address] .NEUABSon 11-16-2020 Neutrophils (Bld) [#/Vol] 3.70 10 3/mcL Normal 2.85-6.16 [facility] ([place]) Comment on above: Performed By: #### C MP, ANEU, ADIFF, A1C, LIPID, CBC #### [address] [address] #### GFR, CARB #### [address] [address] A1Con 11-16-2020 HbA1c (Bld) [Mass fraction] 4.9 % Normal 4.3-6.4 [facility] ([place]) Comment on above: Performed By: #### C MP, ANEU, ADIFF, A1C, LIPID, CBC #### [address] [address] #### GFR, CARB #### [place] [address] CARBon 11-16-2020 LDose Carbamazepine: Unknown Normal [facility] ([place]) Comment on above: Performed By: #### C MP, ANEU, ADIFF, A1C, LIPID, CBC #### [place] [address] #### GFR, CARB #### [place] [address] Carbamazepine Lvl 8.2 mcg/mL Normal 4.0-10.0 [facility] ([place]) Comment on above: Performed By: #### C MP, ANEU, ADIFF, A1C, LIPID, CBC #### [address] [address] #### GFR, CARB #### [place] [address] CBCon 11-16-2020 Erythrocyte distribution width (RBC) [Ratio] 13.2 % Normal 11.5-14.5 [facility] ([place]) Comment on above: Performed By: #### C MP, ANEU, ADIFF, A1C, LIPID, CBC #### [place] [address] #### GFR, CARB #### [place] [address] Hematocrit (Bld) [Volume fraction] 39.9 % Low 42.0-52.0 [facility] ([place]) Comment on above: Performed By: #### C MP, ANEU, ADIFF, A1C, LIPID, CBC #### [address] [address] #### GFR, CARB #### [address] [address] Hemoglobin (Bld) [Mass/Vol] 13.7 G/dL Low 14.0-18.0 [facility] ([place]) Comment on above: Performed By: #### C MP, ANEU, ADIFF, A1C, LIPID, CBC #### [place] [address] #### GFR, CARB #### [address] [address] MCH (RBC) [Entitic mass] 30.6 pg Normal 27.0-31.2 [facility] ([place]) Comment on above: Performed By: #### C MP, ANEU, ADIFF, A1C, LIPID, CBC #### [place] [address] #### GFR, CARB #### [address] [address] MCHC (RBC) [Mass/Vol] 34.3 G/dL Normal 31.8-35.4 [facility] ([place]) Comment on above: Performed By: #### C MP, ANEU, ADIFF, A1C, LIPID, CBC #### [place] [address] #### GFR, CARB #### [address] [address] MCV (RBC) [Entitic vol] 89.0 fL Normal 80.0-94.0 A [facility] ([place]) Comment on above: Performed By: #### C MP, ANEU, ADIFF, A1C, LIPID, CBC #### [place] [address] #### GFR, CARB #### [address] [address] Platelet mean volume (Bld) [Entitic vol] 8.4 fL Normal 7.4-10.4 [facility] ([place]) Comment on above: Performed By: #### C MP, ANEU, ADIFF, A1C, LIPID, CBC #### [place] [address] #### GFR, CARB #### [address] [address] Platelets (Bld) [#/Vol] 149 10 3/mcL Normal 130-400 [facility] ([place]) Comment on above: Performed By: #### C MP, ANEU, ADIFF, A1C, LIPID, CBC #### [place] [address] #### GFR, CARB #### [place] [address] RBC (Bld) [#/Vol] 4.48 10 6/mcL Normal 4.04-6.13 [facility] ([place]) Comment on above: Performed By: #### C MP, ANEU, ADIFF, A1C, LIPID, CBC #### [place] [address] #### GFR, CARB #### [place] [address] WBC (Bld) [#/Vol] 5.20 10 3/mcL Normal 4.60-10.80 [facility] ([place]) Comment on above: Performed By: #### C MP, ANEU, ADIFF, A1C, LIPID, CBC #### [place] [address] #### GFR, CARB #### [place] [address] CMPon 11-16-2020 Albumin [Mass/Vol] 3.9 G/dL Normal 3.5-5.0 [facility] ([place]) Comment on above: Performed By: #### C MP, ANEU, ADIFF, A1C, LIPID, CBC #### [place] [address] #### GFR, CARB #### [place] [address] Albumin/Globulin [Mass ratio] 1.3 {ratio} Normal 1.1-2.5 [facility] ([place]) Comment on above: Performed By: #### C MP, ANEU, ADIFF, A1C, LIPID, CBC #### [place] [address] #### GFR, CARB #### [address] [address] ALP [Catalytic activity/Vol] 83 U/L Normal 40-135 [facility] ([place]) Comment on above: Performed By: #### C MP, ANEU, ADIFF, A1C, LIPID, CBC #### [place] [address] #### GFR, CARB #### [address] [address] ALT [Catalytic activity/Vol] 22 U/L Normal 16-63 [facility] ([place]) Comment on above: Performed By: #### C MP, ANEU, ADIFF, A1C, LIPID, CBC #### [place] [address] #### GFR, CARB #### [address] [address] AST [Catalytic activity/Vol] 10 U/L Normal 10-40 [facility] ([place]) Comment on above: Performed By: #### C MP, ANEU, ADIFF, A1C, LIPID, CBC #### [place] [address] #### GFR, CARB #### [address] [address] Bili Total 0.2 mg/dL Normal 0.2-1.0 [facility] ([place]) Comment on above: Result Comment: Use of this assay is not recommended for patients undergoing treatment with eltrombopag due to the potential for falsely elevated results. Performed By: #### C MP, ANEU, ADIFF, A1C, LIPID, CBC #### [place] [address] #### GFR, CARB #### [address] [address] Calcium [Mass/Vol] 8.3 mg/dL Low 8.4-10.2 [facility] ([place]) Comment on above: Performed By: #### C MP, ANEU, ADIFF, A1C, LIPID, CBC #### [address] [address] #### GFR, CARB #### [address] [address] Chloride [Moles/Vol] 108 mmol/L High 98-107 [facility] ([place]) Comment on above: Performed By: #### C MP, ANEU, ADIFF, A1C, LIPID, CBC #### [address] [address] #### GFR, CARB #### [address] [address] CO2 [Moles/Vol] 27 mmol/L Normal 22-29 [facility] ([place]) Comment on above: Performed By: #### C MP, ANEU, ADIFF, A1C, LIPID, CBC #### [place] [address] #### GFR, CARB #### [address] [address] Creatinine [Mass/Vol] 0.86 mg/dL Normal 0.70-1.30 [facility] ([place]) Comment on above: Performed By: #### C MP, ANEU, ADIFF, A1C, LIPID, CBC #### [place] [address] #### GFR, CARB #### [address] [address] Electrolyte Balance 8.0 mEq/L Normal [facility] ([place]) Comment on above: Performed By: #### C MP, ANEU, ADIFF, A1C, LIPID, CBC #### [place] [address] #### GFR, CARB #### [address] [address] Globulin (S) [Mass/Vol] 2.9 G/dL Normal A [facility] ([place]) Comment on above: Performed By: #### C MP, ANEU, ADIFF, A1C, LIPID, CBC #### [address] [address] #### GFR, CARB #### [address] [address] Glucose [Mass/Vol] 114 mg/dL High 70-105 [facility] ([place]) Comment on above: Performed By: #### C MP, ANEU, ADIFF, A1C, LIPID, CBC #### [address] [address] #### GFR, CARB #### [address] [address] Potassium [Moles/Vol] 4.2 mmol/L Normal 3.5-5.1 [facility] ([place]) Comment on above: Performed By: #### C MP, ANEU, ADIFF, A1C, LIPID, CBC #### [address] [address] #### GFR, CARB #### [address] [address] Protein [Mass/Vol] 6.8 G/dL Normal 6.4-8.2 [facility] ([place]) Comment on above: Performed By: #### C MP, ANEU, ADIFF, A1C, LIPID, CBC #### [address] [address] #### GFR, CARB #### [address] [address] Sodium [Moles/Vol] 143 mmol/L Normal 136-145 [facility] ([place]) Comment on above: Performed By: #### C MP, ANEU, ADIFF, A1C, LIPID, CBC #### [address] [address] #### GFR, CARB #### [address] [address] Urea nitrogen [Mass/Vol] 16 mg/dL Normal 7-18 [facility] ([place]) Comment on above: Performed By: #### C MP, ANEU, ADIFF, A1C, LIPID, CBC #### [address] [address] #### GFR, CARB #### [address] [address] Urea nitrogen/Creatinine [Mass ratio] 19 ratio Normal 7-27 [facility] ([place]) Comment on above: Performed By: #### C MP, ANEU, ADIFF, A1C, LIPID, CBC #### [address] [address] #### GFR, CARB #### [address] [address] LIPIDon 11-16-2020 Cholesterol [Mass/Vol] 147 mg/dL Normal 0-200 [facility] ([place]) Comment on above: Result Comment: Chol esterol Reference Interval: Less than 200 Desirable 200-239 Borderline high risk 240 and above High risk Performed By: #### C MP, ANEU, ADIFF, A1C, LIPID, CBC #### [address] [address] #### GFR, CARB #### [address] [address] Cholesterol in HDL [Mass/Vol] 53 mg/dL Normal 40-60 [facility] ([place]) Comment on above: Performed By: #### C MP, ANEU, ADIFF, A1C, LIPID, CBC #### [address] [address] #### GFR, CARB #### [address] [address] Cholesterol in LDL [Mass/Vol] 82 mg/dL Normal 0-130 [facility] ([place]) Comment on above: Performed By: #### C MP, ANEU, ADIFF, A1C, LIPID, CBC #### [address] [address] #### GFR, CARB #### [address] [address] Triglyceride [Mass/Vol] 59 mg/dL Normal 0-150 A [facility] ([place]) Comment on above: Result Comment: Trig lyceride Reference Interval: Less than 150 Normal 150-199 Borderline high risk 200-499 High risk 500 or higher Very high risk Performed By: #### C MP, ANEU, ADIFF, A1C, LIPID, CBC #### [place] [address] #### GFR, CARB #### [address] [address] .Auto Diffon 04-20-2020 Ammonia (P) [Mass/Vol] 0.30 10 3/mcL Normal 0.15-1.00 [facility] ([place]) Comment on above: Performed By: #### A AYANNA, ADIFF, CBC, GFR, CMP #### [place] [address] #### CARB #### [address] [address] Basophils (Bld) [#/Vol] 0.00 10 3/mcL Normal 0.00-0.19 [facility] ([place]) Comment on above: Performed By: #### A AYANNA, ADIFF, CBC, GFR, CMP #### [place] [address] #### CARB #### [address] [address] Basophils/100 WBC (Bld) 0.7 % Normal 0.0-2.5 A [facility] ([place]) Comment on above: Performed By: #### A AYANNA, ADIFF, CBC, GFR, CMP #### [place] [address] #### CARB #### [address] [address] Eosinophils (Bld) [#/Vol] 0.10 10 3/mcL Normal 0.00-0.40 [facility] ([place]) Comment on above: Performed By: #### A AYANNA, ADIFF, CBC, GFR, CMP #### [place] [address] #### CARB #### [address] [address] Eosinophils/100 WBC (Bld) 2.1 % Normal 0.0-7.0 [facility] ([place]) Comment on above: Performed By: #### A AYANNA, ADIFF, CBC, GFR, CMP #### [place] [address] #### CARB #### [address] [address] Lymphocytes (Bld) [#/Vol] 1.50 10 3/mcL Normal 0.77-3.85 [facility] ([place]) Comment on above: Performed By: #### A AYANNA, ADIFF, CBC, GFR, CMP #### [place] [address] #### CARB #### [address] [address] Lymphocytes/100 WBC (Bld) 28.1 % Normal 10.0-50.0 [facility] ([place]) Comment on above: Performed By: #### A AYANNA, ADIFF, CBC, GFR, CMP #### [place] [address] #### CARB #### [address] [address] Monocytes/100 WBC (Bld) 6.0 % Normal 1.7-13.0 A [facility] ([place]) Comment on above: Performed By: #### A AYANNA, ADIFF, CBC, GFR, CMP #### [place] [address] #### CARB #### [address] [address] Neutrophils/100 WBC (Bld) 63.1 % Normal 37.0-80.0 [facility] ([place]) Comment on above: Performed By: #### A AYANNA, ADIFF, CBC, GFR, CMP #### [place] [address] #### CARB #### [address] [address] .GFRon 04-20-2020 GFR 88 ml/min/1.73sqm Normal [facility] ([place]) Comment on above: Result Comment: GFR Population mean for , Non- Americans Ages 20-29 = 116 mL/min/1.73 sq.m. Ages 30-39 = 107 mL/min/1.73 sq.m. Ages 40-49 = 99 mL/min/1.73 sq.m. Ages 50-59 = 93 mL/min/1.73 sq.m. Ages 60-69 = 85 mL/min/1.73 sq.m. Ages 70+ = 75 mL/min/1.73 sq.m. Chronic Kidney Disease: Less than 60 mL/min/1.73 square meters End Stage Renal Disease: Less than 15 mL/min/1.73 square meters Performed By: #### C MP, ANEU, ADIFF, A1C, LIPID, CBC #### [address] [address] #### GFR, CARB #### [address] [address] GFR Non- 73 ml/min/1.73sqm Normal [facility] ([place]) Comment on above: Result Comment: GFR Population mean for , Non- Americans Ages 20-29 = 116 mL/min/1.73 sq.m. Ages 30-39 = 107 mL/min/1.73 sq.m. Ages 40-49 = 99 mL/min/1.73 sq.m. Ages 50-59 = 93 mL/min/1.73 sq.m. Ages 60-69 = 85 mL/min/1.73 sq.m. Ages 70+ = 75 mL/min/1.73 sq.m. Chronic Kidney Disease: Less than 60 mL/min/1.73 square meters End Stage Renal Disease: Less than 15 mL/min/1.73 square meters Performed By: #### C MP, ANEU, ADIFF, A1C, LIPID, CBC #### [address] [address] #### GFR, CARB #### [address] [address] .NEUABSon 04-20-2020 Neutrophils (Bld) [#/Vol] 3.30 10 3/mcL Normal 2.85-6.16 [facility] ([place]) Comment on above: Performed By: #### C MP, ANEU, ADIFF, A1C, LIPID, CBC #### [address] [address] #### GFR, CARB #### [address] [address] CARBon 04-20-2020 Carbamazepine Lvl 8.7 mcg/mL Normal 4.0-10.0 [facility] ([place]) Comment on above: Performed By: #### C MP, ANEU, ADIFF, A1C, LIPID, CBC #### [address] [address] #### GFR, CARB #### [place] [address] LDose Carbamazepine: Unknown Normal [facility] ([place]) Comment on above: Performed By: #### C MP, ANEU, ADIFF, A1C, LIPID, CBC #### [place] [address] #### GFR, CARB #### [place] [address] CBCon 04-20-2020 Erythrocyte distribution width (RBC) [Ratio] 13.4 % Normal 11.5-14.5 [facility] ([place]) Comment on above: Performed By: #### A AYANNA, ADIFF, CBC, GFR, CMP #### [place] [address] #### CARB #### [place] [address] Hematocrit (Bld) [Volume fraction] 41.7 % Low 42.0-52.0 [facility] ([place]) Comment on above: Performed By: #### A AYANNA, ADIFF, CBC, GFR, CMP #### [place] [address] #### CARB #### [place] [address] Hemoglobin (Bld) [Mass/Vol] 14.1 G/dL Normal 14.0-18.0 [facility] ([place]) Comment on above: Performed By: #### A AYANNA, ADIFF, CBC, GFR, CMP #### [place] [address] #### CARB #### [address] [address] MCH (RBC) [Entitic mass] 29.8 pg Normal 27.0-31.2 [facility] ([place]) Comment on above: Performed By: #### A AYANNA, ADIFF, CBC, GFR, CMP #### [place] [address] #### CARB #### [address] [address] MCHC (RBC) [Mass/Vol] 33.9 G/dL Normal 31.8-35.4 [facility] ([place]) Comment on above: Performed By: #### A AYANNA, ADIFF, CBC, GFR, CMP #### [place] [address] #### CARB #### [place] [address] MCV (RBC) [Entitic vol] 87.9 fL Normal 80.0-94.0 A [facility] ([place]) Comment on above: Performed By: #### A AYANNA, ADIFF, CBC, GFR, CMP #### [place] [address] #### CARB #### [place] [address] Platelet mean volume (Bld) [Entitic vol] 8.9 fL Normal 7.4-10.4 [facility] ([place]) Comment on above: Performed By: #### A AYANNA, ADIFF, CBC, GFR, CMP #### [place] [address] #### CARB #### [place] [id number] Platelets (Bld) [#/Vol] 161 10 3/mcL Normal 130-400 [facility] ([place]) Comment on above: Performed By: #### A AYANNA, ADIFF, CBC, GFR, CMP #### [place] [address] #### CARB #### [place] [address] RBC (Bld) [#/Vol] 4.75 10 6/mcL Normal 4.04-6.13 [facility] ([place]) Comment on above: Performed By: #### A AYANNA, ADIFF, CBC, GFR, CMP #### [place] [address] #### CARB #### [place] [address] WBC (Bld) [#/Vol] 5.20 10 3/mcL Normal 4.60-10.80 [facility] ([place]) Comment on above: Performed By: #### A AYANNA, ADIFF, CBC, GFR, CMP #### [place] [address] #### CARB #### [place] [address] CMPon 04-20-2020 Albumin [Mass/Vol] 4.1 G/dL Normal 3.5-5.0 [facility] ([place]) Comment on above: Performed By: #### C MP, ANEU, ADIFF, A1C, LIPID, CBC #### [place] [address] #### GFR, CARB #### [place] [address] Albumin/Globulin [Mass ratio] 1.4 {ratio} Normal 1.1-2.5 [facility] ([place]) Comment on above: Performed By: #### C MP, ANEU, ADIFF, A1C, LIPID, CBC #### [place] [address] #### GFR, CARB #### [place] [address] ALP [Catalytic activity/Vol] 79 U/L Normal 40-135 [facility] ([place]) Comment on above: Performed By: #### C MP, ANEU, ADIFF, A1C, LIPID, CBC #### [address] [address] #### GFR, CARB #### [address] [address] ALT [Catalytic activity/Vol] 24 U/L Normal 10-35 [facility] ([place]) Comment on above: Performed By: #### C MP, ANEU, ADIFF, A1C, LIPID, CBC #### [place] [address] #### GFR, CARB #### [address] [address] AST [Catalytic activity/Vol] 15 U/L Normal 10-40 [facility] ([place]) Comment on above: Performed By: #### C MP, ANEU, ADIFF, A1C, LIPID, CBC #### [place] [address] #### GFR, CARB #### [address] [address] Bili Total 0.4 mg/dL Normal 0.2-1.0 [facility] ([place]) Comment on above: Result Comment: Use of this assay is not recommended for patients undergoing treatment with eltrombopag due to the potential for falsely elevated results. Performed By: #### C MP, ANEU, ADIFF, A1C, LIPID, CBC #### [place] [address] #### GFR, CARB #### [address] [address] Calcium [Mass/Vol] 8.9 mg/dL Normal 8.4-10.2 [facility] ([place]) Comment on above: Performed By: #### C MP, ANEU, ADIFF, A1C, LIPID, CBC #### [place] [address] #### GFR, CARB #### [address] [address] Chloride [Moles/Vol] 108 mmol/L High 98-107 [facility] ([place]) Comment on above: Performed By: #### C MP, ANEU, ADIFF, A1C, LIPID, CBC #### [address] [address] #### GFR, CARB #### [address] [address] CO2 [Moles/Vol] 30 mmol/L High 22-29 [facility] ([place] Comment on above: Performed By: #### C MP, ANEU, ADIFF, A1C, LIPID, CBC #### [address] [address] #### GFR, CARB #### [address] [address] Creatinine [Mass/Vol] 1.18 mg/dL Normal 0.70-1.30 [facility] ([place]) Comment on above: Performed By: #### C MP, ANEU, ADIFF, A1C, LIPID, CBC #### [address] [address] #### GFR, CARB #### [address] [address] Electrolyte Balance 5.0 mEq/L Normal [facility] ([place]) Comment on above: Performed By: #### C MP, ANEU, ADIFF, A1C, LIPID, CBC #### [address] [address] #### GFR, CARB #### [address] [address] Globulin (S) [Mass/Vol] 3.0 G/dL Normal [facility] ([place]) Comment on above: Performed By: #### C MP, ANEU, ADIFF, A1C, LIPID, CBC #### [address] [address] #### GFR, CARB #### [address] [address] Glucose [Mass/Vol] 94 mg/dL Normal 70-105 [facility] ([place]) Comment on above: Performed By: #### C MP, ANEU, ADIFF, A1C, LIPID, CBC #### [address] [address] #### GFR, CARB #### [address] [address] Potassium [Moles/Vol] 4.3 mmol/L Normal 3.5-5.1 [facility] ([place]) Comment on above: Performed By: #### C MP, ANEU, ADIFF, A1C, LIPID, CBC #### [address] [address] #### GFR, CARB #### [address] [address] Protein [Mass/Vol] 7.1 G/dL Normal 6.4-8.2 [facility] ([place]) Comment on above: Performed By: #### C MP, ANEU, ADIFF, A1C, LIPID, CBC #### [address] [address] #### GFR, CARB #### [address] [address] Sodium [Moles/Vol] 143 mmol/L Normal 136-145 [facility] ([place]) Comment on above: Performed By: #### C MP, ANEU, ADIFF, A1C, LIPID, CBC #### [address] [address] #### GFR, CARB #### [address] [address] Urea nitrogen [Mass/Vol] 14 mg/dL Normal 7-18 [facility] ([place] Comment on above: Performed By: #### C MP, ANEU, ADIFF, A1C, LIPID, CBC #### [address] [address] #### GFR, CARB #### [address] [address] Urea nitrogen/Creatinine [Mass ratio] 12 ratio Normal 7-27 [facility] ([place]) Comment on above: Performed By: #### C MP, ANEU, ADIFF, A1C, LIPID, CBC #### [address] [address] #### GFR, CARB #### [facility] [address] [place] [address] Encounters Encounter Date Encounter Type Care Provider Facility Start: 01-29-2025 End: 01-29-2025 ambulatory KRYSTIAN MAST [employer]ECTIVE SUPERVISOR Work Phone: [facility] Work Phone: Start: 01-29-2025 End: 01-29-2025 Patient encounter procedure KRYSTIAN MAST DETECTIVE SUPERVISOR -Laboratory Work Phone: Start: 01-29-2025 End: 01-29-2025 ambulatory KRYSTIAN MAST Facility:[facility] Start: 06-22-2024 End: 06-22-2024 Emergency department patient visit Senthil Bear Facility:[facility] Start: 01-12-2024 End: 01-12-[address] [facility] Work Phone: Start: 01-12-2024 End: 01-12-[address] [facility] Work Phone: Start: 03-31-2022 End: 03-31-[address] [facility] Immunizations Immunization Date Immunization Notes Care Provider Vinny tom 07-06-2024 influenza, seasonal, injectable, preservative free KRYSTIAN MAST DETECTIVE SUPERVISOR Work Phone: [facility] 06-17-2023 influenza, injectabl e, quadrivalent, preservative free [facility] 06-22-2022 influenza, injectabl e, quadrivalent, preservative free [facility] 08-05-2021 Covid (Moderna) [facility] 06-17-2021 influenza, injectabl e, quadrivalent, preservative free [facility] 06-17-2021 influenza, seasonal, injectable [facility] Work Phone: 04-01-2018 tetanus toxoid, redu ladan diphtheria toxoid, and acellular pertussis vaccine, adsorbed [facility] Payers Date Payer Category Payer Private Health Insurance [facility] [id number] 2024 Medicaid [id number] Medicare [id number] 2024 Self-pay [id number] Medicare SELF PAY INSURANCE [id number] Medicare MEDICARE PART A B [id number] Self-pay SELF PAY INSURANCE [id number] Unknown [id number] Unknown [id number] Social History Date Type Detail Facility Start: 05-19-2018 Tobacco smoking stat [facility] Unknown if ever smoked [facility] Start: 1990 Sex Assigned At Male [facility] Start: 06-22-2024 Tobacco smoking stat [facility] Never smoked tobacco (finding) [facility] Evaluation note Note Date & Type Note Facility Evaluation note No assessment information availa ble [facility] Work Phone: Reason for referral (narrative) Note Date & Type Note Facility Reason for referral (narrative) No reason for referral information available [facility] Work Phone: Summary Purpose Family History No Family History Records FoundNo Family History Records Found Advance Directives No Advanced Directives Records FoundNo Advanced Directives Records Found Additional Source Comments (unrecognized sect ion and content) No Status Records FoundNo Status Records Found INFORMATION SOURCE (unrecogn ized section and content) DATE CREATED AUTHOR 11/17/2020 [facility] ([place]) DATE CREATED AUTHOR AUTHOR'S ORGANIZ ATION 02/03/2025 [facility] Goals (unrecognized section and content) Goals may be documented in a n alternate sectionGoals may be documented in an alternate sectionGoals may be documented in an alternate section Care Teams (unrecognized sec tion and content) Team Status: Active Member Role Status Dates ITALIA ESPINO Primary Care Provider Active Team Status: Inactive Member Role Status Dates ITALIA ESPINO Primary Care Provider Active Dr. Jolynn Cardoso MD Attending Provider, Referring Pro vider Active Team Status: Inactive Member Role Status Dates ITALIA ESPINO Primary Care Provider Active Start: January 29, 2025 End: January 29, 2025 ITALIA ESPINO Attending Provider Active Sta rt: January 29, 2025 End: January 29, 2025 ITALIA ESPINO Referring Provider Active Sta rt: January 29, 2025 End: January 29, 2025 FOR RECORDS PERTAINING TO PATIENTS WHO ARE OR HAVE BEEN ENROLLED IN A CHEMICAL DEPENDENCY/SUBSTANCEABUSE PROGRAM, SOME INFORMATION MAY BE OMITTED. This clinical summary was aggregated from multiple sources. Caution should be exercised in using it in the provision of clinical care. This summary normalizes information from multiple sources, and as a consequence, information in this document may materially change the coding, format and clinical context of patient data. In addition, data may be omitted in some cases. CLINICAL DECISIONS SHOULD BE BASED ON THE PRIMARY CLINICAL RECORDS. [facility] [employer] [facility]. provides no warranty or guarantee of the accuracy or completeness of information in this document.
[2025-05-04 09:42] LABS: Carbamazepine (Tegretol) 9.6 ug/mL (4.0-12.0)
== END | disposition home or self-care (01) ==
LOC: LAB 07:50
PROVIDERS: PCP Nurse Practitioner Adult Health; Referring Provider Psychiatry & Neurology Child & Adolescent Psychiatry; Visit Provider Psychiatry & Neurology Child & Adolescent Psychiatry
DX: Z79.899 Other long term (current) drug therapy (principal)
CPT/HCPCS: 36415; 80156; 83036